=== PATIENT | female | born 1975 | race Caucasian/White ===

== ENCOUNTER → 2018-12-25 14:14 | Outpatient (CLI) | payer BC, SELFPAY ==
--- NOTE | 2018-12-25 | DI.RAD.S_ITS ---
PROCEDURE: XR CERVICAL SPINE 2V OR 3V INDICATIONS: NECK PAIN TECHNIQUE: 3 view(s) of the cervical spine were acquired. COMPARISON: None. FINDINGS: Bones: No fractures or dislocations to the T1 level. The lateral masses of C1 appear intact on the odontoid view. No suspicious bony lesions. Soft tissues: No prevertebral soft tissue swelling. IMPRESSION: No trauma, no appreciable degenerative change, source of neck pain is not seen. Dictated by: Mike Decker M.D. on 12/25/2018 at 14:54 Approved by: Mike Decker M.D. on 12/25/2018 at 14:55
== END ==
PROVIDERS: PCP Family Medicine; Visit Provider Family Medicine
DX: M54.2 Cervicalgia (principal)
CPT/HCPCS: 72040

== ENCOUNTER → 2019-02-02 13:52 | Outpatient (CLI) | payer BC, SELFPAY ==
--- NOTE | 2019-02-02 | DI.MG.S_ITS ---
BILATERAL DIGITAL SCREENING MAMMOGRAM 3D/2D WITH CAD: 02/02/2019 CLINICAL: Routine screening. Baseline exam. No prior exams were available for comparison. The tissue of both breasts is extremely dense, which lowers the sensitivity of mammography. Current study was also evaluated with a Computer Aided Detection (CAD) system. No significant masses, calcifications, or other findings are seen in either breast. IMPRESSION: NEGATIVE There is no mammographic evidence of malignancy. A 1 year screening mammogram is recommended. This exam was interpreted at Station ID: [id number]. NOTE: For mammograms, a report in lay terms will be sent to the patient. Approximately 15% of breast malignancies will not be visualized mammographically. In the management of a palpable breast mass, a negative mammogram must not discourage biopsy of a clinically suspicious lesion. Electronically Signed By: Stef akers/michoacano:02/02/2019 17:13:15 letter sent: Normal Exam ACR BI-RADS Category 1: Negative 3341F
== END ==
PROVIDERS: PCP Family Medicine; Visit Provider Family Medicine
DX: Z12.31 Encounter for screening mammogram for malignant neoplasm of breast (principal)
CPT/HCPCS: 77063; 77067

== ENCOUNTER → 2020-03-26 13:37 | Outpatient (CLI) | payer BC, SELFPAY ==
--- NOTE | 2020-03-26 | DI.RAD.S_ITS ---
PROCEDURE: XR LUMBAR SPINE 2-3V INDICATIONS: Lt hip pain TECHNIQUE: 3 views of the lumbar spine were acquired. COMPARISON: None. FINDINGS: Bones: There are 5 lumbar-type vertebral bodies. The lowest intervertebral disk space is designated as L5-S1. The vertebral body heights are well-maintained without evidence to suggest an acute compression fracture. The bone mineralization is within normal limits. Mild degenerative changes of the lumbar spine are more prominent involving the lower lumbar facet joints. Intervertebral disc heights appear to be relatively well-maintained. Mild degenerative changes of the sacroiliac joints are present. Soft tissues: A moderate amount of stool seen within the imaged portions of the colon. Otherwise, the soft tissues of the imaged abdomen and pelvis are within normal limits. IMPRESSION: Mild degenerative changes of the lumbar spine are more prominent involving the lower lumbar facet joints. Dictated by: Walt Butcher M.D. on 03/26/2020 at 13:50 Approved by: Walt Butcher M.D. on 03/26/2020 at 13:51
--- NOTE | 2020-03-26 | DI.MG.S_ITS ---
BILATERAL DIGITAL SCREENING MAMMOGRAM 3D/2D WITH CAD: 03/26/2020 CLINICAL: Routine screening. Comparison is made to exam dated: 02/02/2019 [facility]. The tissue of both breasts is extremely dense, which lowers the sensitivity of mammography. Current study was also evaluated with a Computer Aided Detection (CAD) system. No significant masses, calcifications, or other findings are seen in either breast. There has been no significant interval change. IMPRESSION: NEGATIVE There is no mammographic evidence of malignancy. A 1 year screening mammogram is recommended. This exam was interpreted at Station ID: [id number]. NOTE: For mammograms, a report in lay terms will be sent to the patient. Approximately 15% of breast malignancies will not be visualized mammographically. In the management of a palpable breast mass, a negative mammogram must not discourage biopsy of a clinically suspicious lesion. Electronically Signed By: Stef akers/michoacano:03/28/2020 12:43:13 letter sent: Normal Exam ACR BI-RADS Category 1: Negative 3341F
--- NOTE | 2020-03-26 | DI.RAD.S_ITS ---
PROCEDURE: XR HIP W PEL IF DONE LT MIN 4V INDICATIONS: hip pain TECHNIQUE: AP pelvis with lateral view(s) of the bilateral hip(s). COMPARISON: [facility], , [id number] W PEL IF PERFORMED, 02/14/2016, 14:12. FINDINGS: Bones: No displaced fractures or dislocations. Pelvic ring appears intact. No suspicious bony lesions. A small bone island is identified in involving the proximal left femur. Degenerative changes of the sacroiliac joints are present. No significant degenerative changes of the hips are appreciated. Soft tissues: The visualized bowel gas pattern is normal. No suspicious soft tissue calcifications. IMPRESSION: Unremarkable bilateral hips. Dictated by: Walt Butcher M.D. on 03/26/2020 at 13:48 Approved by: Walt Butcher M.D. on 03/26/2020 at 13:50
== END ==
PROVIDERS: PCP Family Medicine; Referring Provider Family Medicine; Visit Provider Family Medicine
DX: Z12.31 Encounter for screening mammogram for malignant neoplasm of breast (principal); M25.552 Pain in left hip; M47.28 Other spondylosis with radiculopathy, sacral and sacrococcygeal region; M47.27 Other spondylosis with radiculopathy, lumbosacral region
CPT/HCPCS: 72100; 73522; 77063; 77067

== ENCOUNTER → 2022-02-01 15:25 | Outpatient (CLI) | payer BC, SELFPAY ==
--- NOTE | 2022-02-01 15:28 | DI.MG.S_ITS ---
BILATERAL DIGITAL SCREENING MAMMOGRAM 3D/2D WITH CAD: 02/01/2022 CLINICAL: Routine screening. Comparison is made to exams dated: 03/26/2020 mammogram and 02/02/2019 mammogram - [facility]. The tissue of both breasts is extremely dense, which lowers the sensitivity of mammography. Current study was also evaluated with a Computer Aided Detection (CAD) system. No significant masses, calcifications, or other findings are seen in either breast. There has been no significant interval change. IMPRESSION: NEGATIVE There is no mammographic evidence of malignancy. A 1 year screening mammogram is recommended. This exam was interpreted at Station ID: [id number]. NOTE: For mammograms, a report in lay terms will be sent to the patient. Approximately 15% of breast malignancies will not be visualized mammographically. In the management of a palpable breast mass, a negative mammogram must not discourage biopsy of a clinically suspicious lesion. Electronically Signed By: Sukhwinder dash/michoacano:02/02/2022 07:57:33 letter sent: Normal Exam ACR BI-RADS Category 1: Negative 3341F
== END ==
PROVIDERS: PCP Family Medicine; Referring Provider Family Medicine; Visit Provider Family Medicine
DX: Z12.31 Encounter for screening mammogram for malignant neoplasm of breast (principal)
CPT/HCPCS: 77063; 77067

== ENCOUNTER → 2023-11-16 07:59 | Outpatient (CLI) | payer BC, SELFPAY ==
--- NOTE | 2023-11-16 | DI.MG.S_ITS ---
BILATERAL DIGITAL SCREENING MAMMOGRAM 3D/2D WITH CAD: 11/16/2023 CLINICAL: Routine screening. Comparison is made to exams dated: 02/01/2022 mammogram, 02/02/2019 mammogram, and 03/26/2020 mammogram - . Both breasts are heterogeneously dense, which may obscure small masses (category c / 51-75% glandular tissue). Current study was also evaluated with a Computer Aided Detection (CAD) system. No significant masses, calcifications, or other findings are seen in either breast. There has been no significant interval change. IMPRESSION: NEGATIVE There is no mammographic evidence of malignancy. A 1 year screening mammogram is recommended. Based on the Tyrer Cuzick model (a risk assessment model) the patient's lifetime risk is 12.3% and her 10 year risk is 2.8%. According to the ACR, ACS, and NCCN guidelines, an annual breast MRI exam along with mammogram is recommended if the patient's lifetime risk is 20% or greater. This exam was interpreted at Station ID: [id number]. NOTE: For mammograms, a report in lay terms will be sent to the patient. Approximately 15% of breast malignancies will not be visualized mammographically. In the management of a palpable breast mass, a negative mammogram must not discourage biopsy of a clinically suspicious lesion. Electronically Signed By: Tiana delcid/michoacano:11/18/2023 12:41:34 letter sent: Normal Exam ACR BI-RADS Category 1: Negative 3341F
== END ==
LOC: MAMMO 07:59
PROVIDERS: PCP Family Medicine; Referring Provider Family Medicine; Visit Provider Family Medicine
DX: Z12.31 Encounter for screening mammogram for malignant neoplasm of breast (principal); R92.333 Mammographic heterogeneous density, bilateral breasts
CPT/HCPCS: 77063; 77067